=== PATIENT | male | born 1950 | race Caucasian/White ===

== ENCOUNTER 2016-09-09 21:33 | Emergency (ER) | payer MEDICARE, BC ==
[~2016-09-09] VITALS: Ht 190.5 cm; Wt 100.0 kg
[2016-09-09 21:36] VITALS: BP 125/81; PULSE 89; RESP 18; TEMP 98.1; O2SAT 93
[2016-09-09] MEDS ORDERED: MONT10TA2 PO (21:51)
[2016-09-09] MEDS ORDERED: LEVOTAB PO (21:51)
[2016-09-09] MEDS ORDERED: SYMB160A INH (21:51)
[2016-09-09] MEDS ORDERED: BUDE20SU (21:51)
[2016-09-09] MEDS ORDERED: CLIN1CAP5 PO (21:59)
[2016-09-09] MEDS ORDERED: CLINDAMYCIN 150 MG CAP PO ONE (22:00)
--- NOTE | 2016-09-09 22:10 | PD ---
HPI Chief Complaint: Skin Problem Time Seen by Provider: 21:59 Travel History International Travel<30 days: No Contact w/Intl Traveler<30days: No Traveled to known affect area: No History of Present Illness HPI 66-year-old male presents to the emergency room for evaluation of right volar wrist redness and streaking 31st noticed earlier today. Patient states while golfing yesterday, he stuck his arm in a palm tree to retrieve his ball. He does not remember getting bit or poked by anything at that time but states later in the day he developed swelling localized to the right volar wrist. The swelling decreased throughout the day and when he woke up this morning he had some redness that are rapidly increased mid day. He denies significant pain. Pain is exacerbated with range of motion of the wrist. Patient denies fever, chills, nausea, and vomiting. No chronic medical conditions other than allergies and asthma. PFSH Past Medical History Asthma: Yes Diminished Hearing: No Respiratory: Yes (ASTHMA) Tetanus Vaccination: < 5 Years Influenza Vaccination: Yes ?: Not Past Surgical History Prostatectomy: Yes Other Surgery: Yes (Sinus surgery) Social History Alcohol Use: Yes (2-3 a day) Tobacco Use: No Substance Use: No Allergies-Medications (Allergen,Severity, Reaction): Coded Allergies: Penicillin (Verified Allergy, Mild, RASH, 09/09/16) Aspirin (Verified Adverse Reaction, Unknown, ASTHMA ATTACK, 09/09/16) Nonsteroidal Anti-Inflammatory Agts (Verified Adverse Reaction, Unknown, ASTHMA ATTACK, 09/09/16) Reported Meds & Prescriptions Reported Meds & Active Scripts Active Reported Budesonide Nasal [place] (Budesonide (Nasal)) 32 Mcg/Act Coco Singulair (Montelukast Sodium) 10 Mg Tab 10 Mg PO HS Levocetirizine 5 Mg Tab 10 Mg PO DAILY Symbicort Inh (Budesonide/Formoterol Fumarate) 160-4.5 Mcg/Act Aero 2 Puff INH Q12HR Review of Systems Except as stated in HPI: all other systems reviewed are Neg Physical Exam Narrative GENERAL: Well-nourished, well-developed patient. SKIN: Focused skin assessment warm/dry. There is an erythematous area in the right volar wrist which measures about 11x7 cm cm in diameter. No fluctuance, pointing, or drainage. There is lymphangitis extending to the mid humerus. HEAD: Normocephalic. EYES: No scleral icterus. No injection or drainage. NECK: Supple, trachea midline. No JVD or lymphadenopathy. CARDIOVASCULAR: Regular rate and rhythm without murmurs, gallops, or rubs. RESPIRATORY: Breath sounds equal bilaterally. No accessory muscle use. EXTREMITY: Mild to moderate tenderness to palpation of the erythema on the right wrist. Full range of motion of the wrist, pain with extension. 2+ radial pulse. Data Data Last Documented VS Vital Signs Date Time Temp Pulse Resp B/P Pulse Ox O2 Delivery O2 Flow Rate FiO2 09/09/16 21:36 98.1 89 18 125/81 93 Orders Clindamycin (Cleocin) (09/09/16 22:00) MDM Medical Decision Making Medical Screen Exam Complete: Yes Emergency Medical Condition: Yes Medical Record Reviewed: Yes Differential Diagnosis Cellulitis, allergic reaction, abrasion, contusion, sprain Narrative Course 66-year-old male presents to the emergency room for evaluation of right wrist pain, redness, swelling that started yesterday and worsened today. Physical exam reveals 11 x 7 cm area of erythema on the right volar wrist with lymphangitis extending to the mid humerus. Patient is afebrile and well- appearing in the emergency room. Vital signs stable. Nontoxic appearing. No evidence of sepsis. Given patient's overall appearance and health, it is reasonable to try outpatient therapy with oral antibiotics. Patient was given first dose of clindamycin in the emergency room. He'll be discharged with prescription for the same. Told to follow up with a primary care physician or return for worsening symptoms such as increasing redness, fever, worsening lymphangitis. He understands and agrees to plan. Diagnosis Primary Impression: Cellulitis of skin with lymphangitis Referrals: Primary Care Physician Patient Instructions: Cellulitis (ED), General Instructions Additional Instructions: Rest and drink plenty of fluids. Take clindamycin as directed, until gone. Follow up with a primary care physician. Return to emergency room for worsening symptoms, as discussed. Med/Other Pt SpecificInfo: Prescription(s) given Scripts Clindamycin 150 Mg Que102 Mg PO Q6H 10 Days Ref 0 Prov:Vik Castellano MD 09/09/16 Disposition: 01 DISCHARGE HOME Condition: Stable Sunshine Barragan Sep 09, 2016 22:10
== END 2016-09-09 22:18 | disposition home or self-care (01) ==
LOC: PHEFT 21:33
DX: I89.1 Lymphangitis (principal)
CPT/HCPCS: 99283